=== PATIENT | female | born 1990 | race Caucasian/White ===

== ENCOUNTER 2020-08-25 07:08 | Day surgery (SDC) | payer OTHER ==
[~2020-08-25] VITALS: Ht 167.6 cm; Wt 104.3 kg
[~2020-08-25 07:08] MED LIST: ACETAMINOPHEN 650 MG SUPP PR ONE; CETI5SOL3 PO; LR 1,000 ML IV ONE; PREN200C PO
[2020-08-25 08:28] LABS: HEMATOCRIT 42.7 % (36.0-47.0); MEAN CORPUSCULAR HEMOGLOBIN 29.6 pg (27.0-33.0); MEAN CORPUSCULAR HGB CONC 32.8 g/dl (32.0-36.5); MEAN CORPUSCULAR VOLUME 90.3 fl (80.0-96.0); PLATELET COUNT, AUTOMATED 298 10^3/uL (150-450); RED BLOOD COUNT 4.73 10^6/uL (4.00-5.40); WHITE BLOOD COUNT 6.6 10^3/uL (4.0-10.0)
[2020-08-25 08:51] LABS: BLOOD UREA NITROGEN 15 MG/DL (7-18); CARBON DIOXIDE LEVEL 28 MEQ/L (21-32); CHLORIDE LEVEL 108 MEQ/L (98-107); GLOMERULAR FILTRATION RATE > 60.0 (>60); GLUCOSE, FASTING 86 MG/DL (70-100); HCG, SERUM QUANTITATIVE < 1.0 MIU/ML; POTASSIUM SERUM 4.4 MEQ/L (3.5-5.1); SODIUM LEVEL 142 MEQ/L (136-145)
[2020-08-25] MEDS ORDERED: METOCLOPRAMIDE INJ 10MG/2ML VIAL (J2765 PER 1) As Ordered ONE (09:12)
[2020-08-25] MEDS ORDERED: propofoL 200 MG/20 ML VIAL As Ordered ONE (09:12)
[2020-08-25] MEDS ORDERED: LIDOCAINE 2% 100MG/5ML SDV (FOR ANES.) As Ordered ONE (09:12)
[2020-08-25] MEDS ORDERED: fentaNYL 100 MCG/2 ML INJECTION (J3010) As Ordered ONE (09:12)
[2020-08-25] MEDS ORDERED: ONDANSETRON 4MG/2ML VIAL As Ordered ONE (09:12)
[2020-08-25] MEDS ORDERED: MIDAZOLAM INJ 2MG/2ML VIAL (J2250 PER 1MG) As Ordered ONE (09:13)
[2020-08-25] MEDS ORDERED: SILVER NITRATE APPLICATOR As Ordered ONE (10:45)
[2020-08-25] MEDS ORDERED: ACETAMINOPHEN 650 MG SUPP As Ordered ONE (10:57)
[2020-08-25] MEDS ORDERED: KETOROLAC 60MG 2ML VIAL As Ordered ONE (11:22)
[2020-08-25] MEDS ORDERED: oxyCODONE 5MG TAB As Ordered ONE (12:19)
[2020-08-25] MEDS ORDERED: oxyCODONE 5MG TAB PO PRN (12:30)
[2020-08-25] MEDS ORDERED: ONDANSETRON 4MG/2ML VIAL IV PRN (12:30)
[2020-08-25] MEDS ORDERED: LR 1,000 ML IV SCH (12:30)
[2020-08-25] MEDS ORDERED: fentaNYL 100 MCG/2 ML INJECTION (J3010) IV PRN (12:30)
[2020-08-25 12:58] VITALS: BP 126/78
== END 2020-08-25 13:29 | disposition home or self-care (01) ==
LOC: M SDC 07:08
PROVIDERS: ATTEND Obstetrics & Gynecology
DX: N84.0 Polyp of corpus uteri (principal); N97.9 Female infertility, unspecified; Z88.1 Allergy status to other antibiotic agents; Z79.899 Other long term (current) drug therapy
CPT/HCPCS: 36415; 58558; 80048; 84702; 85027; 88305; J1885; J2250; J2405; J2765; J3010

== ENCOUNTER 2021-04-21 14:46 | Inpatient (IN) | payer OTHER ==
[2021-04-21] VITALS (15 sets, daily range): BP systolic 111–168; BP diastolic 57–104
[~2021-04-21] VITALS: Ht 165.1 cm; Wt 127.4 kg
[~2021-04-21 14:46] MED LIST changes: -ACETAMINOPHEN 650 MG SUPP PR ONE; -LR 1,000 ML IV ONE
[2021-04-21] MEDS ORDERED: CALCIUM GLUCONATE 1,000 MG in D5W MINI-BAG PLUS 100 ML IV PRN (15:25)
[2021-04-21] MEDS ORDERED: MAG Sulf (L&D) 4 GM/100 ML 4 GM in IV 1 EA IV ONE (15:45)
[2021-04-21] MEDS: LR 1,000 ML IV SCH (16:00)
[2021-04-21 16:01] LABS: APPEARANCE, URINE CLOUDY (CLEAR); BACTERIA, URINE AUTO NEGATIVE (NEGATIVE); BILIRUBIN, URINE AUTO NEGATIVE (NEGATIVE); BLOOD, URINE BLOOD NEGATIVE (NEGATIVE); COLOR, URINE YELLOW (YELLOW); GLUCOSE, URINE (UA) AUTO NEGATIVE (NEGATIVE); KETONE, URINE AUTO NEGATIVE (NEGATIVE); LEUKOCYTE ESTERASE, URINE AUTO NEGATIVE (NEGATIVE); NITRITE, URINE AUTO NEGATIVE (NEGATIVE); PROTEIN, URINE AUTO 3+ mg/dL (NEGATIVE); RBC, URINE AUTO 0 /HPF (0-3); SPECIFIC GRAVITY URINE AUTO 1.026 (1.002-1.035); SQUAMOUS EPITHELIAL CELL UR AU 7 /HPF (0-6); UROBILINOGEN, URINE AUTO 0.2 mg/dL (0.0-2.0); WBC, URINE AUTO 9 /HPF (0-3)
[2021-04-21] MEDS: BETAMETHASONE SOLUSPAN 6MG/ML 5ML VIAL (J0702 PER 3MG) IM SCH (16:07)
[2021-04-21] MEDS: MAG Sulf (OBGYN) 20GM/500ML 20,000 MG in IV 1 EA IV SCH (16:16)
[2021-04-21 16:31] LABS: ALT/SGPT 31 U/L (12-78); BILIRUBIN,TOTAL 0.1 MG/DL (0.2-1.0); GLOMERULAR FILTRATION RATE > 60.0 (>60); LDH LACTATE DEHYDROGENASE 273 U/L (84-246); URIC ACID 5.9 MG/DL (2.6-6.0)
[2021-04-21] MEDS ORDERED: NIFEdipine 10 MG CAP PO ONE (17:15)
[2021-04-21] MEDS ORDERED: GNP250TA9 PO (17:40)
[2021-04-21] MEDS ORDERED: PRENTAB9 PO (17:40)
[2021-04-21 17:59] LABS: BASO % 0.2 % (0.0-1.0); EOS # 0.2 10^3/uL (0.0-0.5); EOS % 1.9 % (0.0-3.0); HEMATOCRIT 39.7 % (36.0-47.0); HEMOGLOBIN 13.2 g/dl (12.0-15.5); LYMPH # 1.5 10^3/uL (1.5-5.0); LYMPH % 14.1 % (24.0-44.0); MEAN CORPUSCULAR HEMOGLOBIN 30.1 pg (27.0-33.0); MEAN CORPUSCULAR HGB CONC 33.2 g/dl (32.0-36.5); MEAN CORPUSCULAR VOLUME 90.6 fl (80.0-96.0); MONO # 1.1 10^3/uL (0.0-0.8); MONO % 10.1 % (2.0-8.0); NEUTROPHILS # 7.8 10^3/uL (1.5-8.5); NEUTROPHILS % 73.3 % (36.0-66.0); PLATELET COUNT, AUTOMATED 282 10^3/uL (150-450); RED BLOOD COUNT 4.38 10^6/uL (4.00-5.40); WHITE BLOOD COUNT 10.7 10^3/uL (4.0-10.0)
--- NOTE | 2021-04-21 18:33 | HPEPDOC ---
Obstetrical History & Physical General Date of Admission History of Present Illness 30 yo G1 @ 31W4D by IVF who is admitted for pre e with severe features. patient reports that she had sudden onset of swelling in the last week with 10lb weight gain. she also notes that she has had vision changes, and took her BP, Which was 170's/116's. Patient had a medic repeat her BP and was 170/100's. she then presented to l&d for further testing. in triage BP were 160's/90's persistently and she received 20mg of PROCARDIA PO because she did not have IV access yet. since then her BP has been wnl. pre e labs were also obtained. patient denies any vaginal bleeding or LOF. She reports regular movements. she has no other concerns. Information Provided By: Patient Care Care: Good Care Dating Final EDC: Jun 19, 2021 Estimated Date of Confinement: Jun 19, 2021 EGA at Admission: 31 (31w4d) Antepartum Course Diagnos(e)s 1. Obesity, prepregnancy BMI 38WK, Excessive weight gain in #36LB 2. CHTN-on baby ASA, Baseline Labs were 3. IVF - did not get a echo at 20 weeks 4. Pre e w/SF on Admission s/p 20mg of procardia, elevated creatinine 1.1 and P/C: 16 Height (inches): 65 Pre- weight (lbs.): 225 Admission Weight (lbs.): 261 Change in Weight (lbs.): 34 Past Medical History Past Obstetrical History : Past Obstetrical History: Primgravida ERADICATOR History: No pertinent history Past Medical History Medical History Obesity, CHTN, Migraines Surgical History: Denies/None, Other (wte, polypectomy) Family History Significant Family History: No pertinent family hx Social History Marital Status: Psychosocial History: No pertinent psych hx * Smoker: non-smoker Alcohol: Denies Drugs: denies Abuse Violence Screening Have you been hit/kicked/slapp: No Have you been sexually assault: No Imunizations Tdap status: current Allergies Coded Allergies: erythromycin base (Verified Allergy, Intermediate, PT STATES EYES SWOLLEN SHUT WITH MYOCIN DRUGS, 08/18/20) Medications Scheduled Magnesium Oxide (Magnesium) 250 Mg Tablet, 1 TAB PO DAILY No.137/Iron/Folic Acd ( Vitamin Tablet) 1 Each Tablet, 1 TAB PO DAILY Physical Examination Physical Examination GENERAL: Alert and oriented times three. BREAST: . ABDOMEN: Gravid and non-tender to touch. FETUS: US PENDING HEART RATE: Regular rate and rhythm. LUNGS: Clear to auscultation (CTA). EXTREMITIES: No edema. No clonus. Deep tendon reflexes (DTRs) + 1 Vital Signs/I&O Vital Signs Date Time Temp Pulse Resp B/P (MAP) Pulse Ox O2 Delivery O2 Flow Rate FiO2 04/21/21 16:46 114 18 111/57 (75) 04/21/21 15:08 98.2 Laboratory Data 24H LABS Laboratory Tests 2 04/21/21 15:43: Urine Color YELLOW, Urine Appearance CLOUDYH, Urine pH 5.0, Urine Specific Counselor 1.026, Urine Protein 3+H, Urine Glucose (Auto)(UA) NEGATIVE, Urine Ketones (Auto) NEGATIVE, Urine Blood NEGATIVE, Urine Nitrite NEGATIVE, Urine Bilirubin NEGATIVE, Urine Urobilinogen 0.2, Urine Leukocyte Esterase (Auto) NEGATIVE, Urine WBC (Auto) 9H, Urine RBC (Auto) 0, Urine Hyaline Casts (Auto) 0, Urine Bacteria (Auto) NEGATIVE, Urine Squamous Epithelial Cells 7, Urine Sperm (Auto) , Urine Random Creatinine 170.0, Urine Random Total Protein 2800.0H, Glomerular Filtration Rate > 60.0, Uric Acid 5.9, Total Bilirubin 0.1L, Aspartate Amino Transf (AST/SGOT) 33, Alanine Aminotransferase (ALT/SGPT) 31, Lactate Dehydrogenase 273H, Syphilis Serology NONREACTIVE 04/21/21 16:32: Coronavirus (COVID-19)(PCR) NEGATIVE CBC/BMP Laboratory Tests 04/21/21 15:43 Pertinent Laboratoy Data Blood Type: A+ RBC Antibody Screen: Negative HIV: Negative Hepatitis B: Negative Hepatitis C: Unknown Rapid Plasma Reagin: Nonreactive Rubella: Immune Varicella: Immune Chlamydia/Gonorrhea: Negative Group B Streptococcus: Unknown Cystic Fibrosis: Declined Anatomy Ultrasound Placenta Location: Posterior Assessment Heart Rate (FHR): 150 Variability: Moderate Accelerations: Positive Decelerations: None Tocometer Contractions: No Multi-drug resistant Organism: No history of MDRO Assessment/Plan Assessment 30 yo G1 @ 31W4D by IVF who is admitted for pre e with severe features. patient reports that she had sudden onset of swelling in the last week with 10lb weight gain. she also notes that she has had vision changes, and took her BP, Which was 170's/116's. Patient had a medic repeat her BP and was 170/100's. she then presented to l&d for further testing. in triage BP were 160's/90's persistently and she received 20mg of PROCARDIA PO because she did not have IV access yet. since then her BP has been wnl. pre e labs were also obtained and well notable for elevated creatinine and P/C ratio. now on mag for seizure prevention. 1. Obesity, prepregnancy BMI 38WK, Excessive weight gain in #36LB 2. CHTN-on baby ASA, Baseline Labs were 3. IVF - did not get a echo at 20 weeks 4. Pre e w/SF on Admission s/p 20mg of procardia, elevated creatinine 1.1 and P/C: 16 GBS unknown RH pos Posterior placenta Plan Admit and orient. Cardiac Cath Technician and consent. Diet: clears Group B Streptococcus (GBS) Unknown- if sign of labor, will start Penicillin Pre e labs obtained, will repeat q6hrs for follow creatinine Strict monitoring of UOP -Steroid started at 1607 on 21apr2021 -we discussed best case scenario is delivery at 34 weeks, if she develops HELP syndrome -IV anti-hypertensives PRN -Will decrease mag to 1mg/hr due to elevated creatinine -if concern for delivery before 32 weeks will transfer to [facility] -Order growth scan -get EKG for SOB when she lays down JOSE BLANTON MD Apr 21, 2021 18:33
[2021-04-21] MEDS ORDERED: HOME MED LIST COMPLETE! XX SCH (18:45)
[2021-04-21] MEDS: ONDANSETRON 4MG/2ML VIAL IV PRN (20:14)
[2021-04-21] MEDS: ACETAMINOPHEN 500 MG TAB PO PRN (20:23)
--- NOTE | 2021-04-21 21:14 | REPVR ---
PROCEDURE INFORMATION: Exam: US First Trimester, Transabdominal Exam date and time: 04/21/2021 7:57 PM Age: 30 years old Clinical indication: Screening exam; Other: HX of preeclampsia; ; Additional info: 30 yo g1 @ 31w4d with pre e with S/P needed a growth scan. TECHNIQUE: Imaging protocol: Real-time transabdominal obstetrical ultrasound of the maternal pelvis and a first trimester , less than 14 weeks 0 days, with image documentation. COMPARISON: No relevant prior studies available. FINDINGS: Gestation: Single intrauterine fetus. presentation: Cephalic presentation. Embryonic/ heart rate: heartbeat of 132 bpm. Extra-embryonic membranes/Placenta: Posterior placenta. Amniotic fluid: Amniotic fluid/chorionic fluid is within normal limits for gestational age. Amniotic fluid index: Normal YENNIFER of 9.2 cm. anatomy: The urinary bladder, kidneys and cord are normal. BIOMETRY: Gestational age (AUA): The composite gestational age by ultrasound is 30 weeks 2 days. Estimated due date (AUA): The EDC is 06/28/2021. Estimated weight: The estimated weight is 1517 grams and is 6th percentile. Biparietal diameter: The BPD measures 7.6 cm suggesting an age of 30 weeks 2 days. Head circumference: The head circumference measures 27.4 cm suggesting an age of 30 weeks 0 days. Abdominal circumference: The abdominal circumference measures 25.8 cm suggesting an age of 30 weeks 0 days. Femur length: The femur length measures 5.8 cm suggesting an age of 30 weeks 3 days. MATERNAL: Uterus: Unremarkable. Cervix: Unremarkable. Right adnexa: Unremarkable. Left adnexa: Unremarkable. Intraperitoneal space: No intraperitoneal free fluid. IMPRESSION: 1. Single live intrauterine fetus in cephalic presentation with a composite age of 30 weeks 2 days. The EDC is 06/28/2021. 2. Estimated weight is 1517 g and is 6th percentile. Electronically signed by: Maurice Goode On 04/21/2021 21:13:39 PM
[2021-04-21] MEDS ORDERED: CALCIUM CARBONATE 500 MG CHEW U/D PO ONE (21:50)
[2021-04-21] MEDS ORDERED: ONDANSETRON 4MG/2ML VIAL IV ONE (22:25)
[2021-04-21] MEDS ORDERED: FIORICET TAB PO ONE (22:25)
[2021-04-21 23:24] LABS: HEMATOCRIT 40.9 % (36.0-47.0); HEMOGLOBIN 13.9 g/dl (12.0-15.5); MEAN CORPUSCULAR HEMOGLOBIN 30.2 pg (27.0-33.0); MEAN CORPUSCULAR VOLUME 88.9 fl (80.0-96.0); PLATELET COUNT, AUTOMATED 295 10^3/uL (150-450); WHITE BLOOD COUNT 13.3 10^3/uL (4.0-10.0)
[2021-04-21 23:52] LABS: ALT/SGPT 37 U/L (12-78); BILIRUBIN,TOTAL 0.2 MG/DL (0.2-1.0); BLOOD UREA NITROGEN 17 MG/DL (7-18); CALCIUM LEVEL 8.4 MG/DL (8.5-10.1); CARBON DIOXIDE LEVEL 21 MEQ/L (21-32); CHLORIDE LEVEL 107 MEQ/L (98-107); CREATININE FOR GFR 0.97 MG/DL (0.55-1.30); GLOMERULAR FILTRATION RATE > 60.0 (>60); GLUCOSE, FASTING 108 MG/DL (70-100); POTASSIUM SERUM 5.1 MEQ/L (3.5-5.1); SODIUM LEVEL 136 MEQ/L (136-145); TOTAL PROTEIN 5.7 GM/DL (6.4-8.2)
[2021-04-22] VITALS (44 sets, daily range): BP systolic 134–172; BP diastolic 70–104
[2021-04-22] MEDS ORDERED: CALCIUM CARBONATE 500 MG CHEW U/D PO ONE (00:45)
[2021-04-22] MEDS: LR 1,000 ML IV SCH ×3 (00:53→13:28)
[2021-04-22] MEDS ORDERED: LABETALOL 100MG/20ML VIAL IV STA ×2 (03:04→04:32)
[2021-04-22] MEDS ORDERED: LABETALOL 100MG/20ML VIAL As Ordered ONE ×2 (03:05→19:32)
[2021-04-22 04:02] LABS: HEMATOCRIT 40.4 % (36.0-47.0); HEMOGLOBIN 13.8 g/dl (12.0-15.5); MEAN CORPUSCULAR HEMOGLOBIN 30.3 pg (27.0-33.0); MEAN CORPUSCULAR HGB CONC 34.2 g/dl (32.0-36.5); MEAN CORPUSCULAR VOLUME 88.6 fl (80.0-96.0); PLATELET COUNT, AUTOMATED 315 10^3/uL (150-450); RED BLOOD COUNT 4.56 10^6/uL (4.00-5.40); WHITE BLOOD COUNT 13.7 10^3/uL (4.0-10.0)
[2021-04-22 04:27] LABS: ALBUMIN 1.9 GM/DL (3.2-5.2); ALT/SGPT 38 U/L (12-78); BILIRUBIN,TOTAL 0.2 MG/DL (0.2-1.0); BLOOD UREA NITROGEN 18 MG/DL (7-18); CALCIUM LEVEL 8.4 MG/DL (8.5-10.1); CARBON DIOXIDE LEVEL 20 MEQ/L (21-32); CHLORIDE LEVEL 107 MEQ/L (98-107); CREATININE FOR GFR 1.02 MG/DL (0.55-1.30); GLOMERULAR FILTRATION RATE > 60.0 (>60); GLUCOSE, FASTING 130 MG/DL (70-100); POTASSIUM SERUM 5.1 MEQ/L (3.5-5.1); SODIUM LEVEL 136 MEQ/L (136-145); TOTAL PROTEIN 5.5 GM/DL (6.4-8.2)
[2021-04-22] MEDS: ONDANSETRON 4MG/2ML VIAL IV PRN ×3 (04:49→17:04)
[2021-04-22] MEDS: CALCIUM CARBONATE 500 MG CHEW U/D PO PRN ×4 (05:14→20:07)
--- NOTE | 2021-04-22 07:18 | IPNPDOC ---
Obstetrical Progress Note Date of Service Apr 22, 2021 Subjective 30 yo G1 @ 31W5D by IVF who is admitted for pree with severe features with Severe range BP, Elevated creating of 1.1, vision changes. she has needed 20mg of procardia PO, 20, THEN 40mg of labetalol overnight for BP control. she was started on steroids on admission. her baby has stayed appropriate for gestational age. a GS was obtained yesterday as well with EFW in the 6th percentile. 1. Obesity, prepregnancy BMI 38WK, Excessive weight gain in #36LB 2. CHTN-on baby ASA, Baseline Labs were 3. IVF - did not get a echo at 20 weeks 4. Pre e w/SF on Admission s/p 20mg of procardia, elevated creatinine 1.1 and P/C: 16 5. IUGR- EFW 6th On admission OBJETIVE FHH: 140, MOD SHASHANK, Accels, 10x10, no decels- appropriate for gestational age GENERAL: Alert and oriented times three. BREAST: . ABDOMEN: Gravid and non-tender to touch. FETUS: cephalic HEART RATE: Regular rate and rhythm. LUNGS: Clear to auscultation (CTA). EXTREMITIES: No edema. No clonus. Deep tendon reflexes (DTRs) + 1 PROCEDURE INFORMATION: Exam: US First Trimester, Transabdominal Exam date and time: 04/21/2021 7:57 PM Age: 30 years old Clinical indication: Screening exam; Other: HX of preeclampsia; ; Additional info: 30 yo g1 @ 31w4d with pre e with S/P needed a growth scan. TECHNIQUE: Imaging protocol: Real-time transabdominal obstetrical ultrasound of the maternal pelvis and a first trimester , less than 14 weeks 0 days, with image documentation. COMPARISON: No relevant prior studies available. FINDINGS: Gestation: Single intrauterine fetus. presentation: Cephalic presentation. Embryonic/ heart rate: heartbeat of 132 bpm. Extra-embryonic membranes/Placenta: Posterior placenta. Amniotic fluid: Amniotic fluid/chorionic fluid is within normal limits for gestational age. Amniotic fluid index: Normal YENNIFER of 9.2 cm. anatomy: The urinary bladder, kidneys and cord are normal. BIOMETRY: Gestational age (AUA): The composite gestational age by ultrasound is 30 weeks 2 days. Estimated due date (AUA): The EDC is 06/28/2021. A/P 30 yo G1 @ 31W5D by IVF who is admitted for pree with severe features with Severe range BP, Elevated creating of 1.1, vision changes. she has needed 20mg of procardia PO, 20, THEN 40mg of labetalol overnight for BP control. she was started on steroids on admission. her baby has stayed appropriate for gestational age. a GS was obtained yesterday as well with EFW in the 6th percentile. -now on 1g of mag /hr, due off at 1600. -second dose of steroid today at 1600 -obtain GBS -Start on 200mg BID of labetalol -monitor UOP, Last was 30ml/hr, increase fluid rate to 150/hr, bolus PRN if lungs continues to be clear -IV antihypertensive prn -UA doppler weekly until delivery Objective Vital Signs Date Time Temp Pulse Resp B/P (MAP) Pulse Ox O2 Delivery O2 Flow Rate FiO2 04/22/21 06:08 97.8 93 17 148/94 (112) Assessment Heart Rate (FHR): 140 Variability: Moderate Accelerations: Positive Decelerations: None Heart Rate Tracing: Other (appropriate for gestional age) Tocometer Contractions: No Assessment and Plan Group B Streptococcus: Unknown JOSE BLANTON MD Apr 22, 2021 07:11
[2021-04-22] MEDS: OMEPRAZOLE 20 MG CAP PO SCH ×2 (07:26→22:34)
[2021-04-22] MEDS: LABETALOL 200 MG TAB PO SCH ×2 (07:27→20:04)
[2021-04-22] MEDS: MAG Sulf (OBGYN) 20GM/500ML 20,000 MG in IV 1 EA IV SCH ×2 (07:55→19:50)
[2021-04-22] MEDS ORDERED: CETIRIZINE (ZyrTEC) 10 MG TAB PO SCH (09:00)
--- NOTE | 2021-04-22 09:30 | REP ---
INDICATION: BPP COMPARISON: None. TECHNIQUE: Transabdominal obstetrical ultrasound with color Doppler evaluation. FINDINGS: Examination demonstrates a single live intrauterine in cephalic presentation. motion is identified by technologist. Placenta is noted posterior and grade 2 without evidence for placenta previa or abruption. Amniotic fluid volume is normal. Cervix measures 3.8 cm in length and appears closed.. Selected gestational age: 31 weeks 6 days with ADE 06/18/2021. FHR equals 132 beats per minute. YENNIFER: 12.7 cm Umbilical artery SD ratio: 2.56 Biophysical profile score: 8/8 IMPRESSION: Single live intrauterine in cephalic presentation. Amniotic fluid volume and biophysical profile score normal. <Electronically signed by Thang Blancas > 04/22/21 1402
[2021-04-22 10:15] LABS: HEMATOCRIT 40.7 % (36.0-47.0); HEMOGLOBIN 13.6 g/dl (12.0-15.5); MEAN CORPUSCULAR HEMOGLOBIN 29.7 pg (27.0-33.0); MEAN CORPUSCULAR HGB CONC 33.4 g/dl (32.0-36.5); MEAN CORPUSCULAR VOLUME 88.9 fl (80.0-96.0); PLATELET COUNT, AUTOMATED 349 10^3/uL (150-450); RED BLOOD COUNT 4.58 10^6/uL (4.00-5.40); WHITE BLOOD COUNT 15.3 10^3/uL (4.0-10.0)
[2021-04-22 10:46] LABS: ALBUMIN 2.1 GM/DL (3.2-5.2); BILIRUBIN,TOTAL 0.2 MG/DL (0.2-1.0); CALCIUM LEVEL 9.2 MG/DL (8.5-10.1); CREATININE FOR GFR 1.15 MG/DL (0.55-1.30); GLOMERULAR FILTRATION RATE 59.4 (>60); POTASSIUM SERUM 5.3 MEQ/L (3.5-5.1); TOTAL PROTEIN 5.9 GM/DL (6.4-8.2)
[2021-04-22] MEDS ORDERED: LR 250 ML IV ONE (11:00)
--- NOTE | 2021-04-22 13:34 | IPNPDOC ---
Obstetrical Progress Note Date of Service Apr 22, 2021 Subjective Pt reports that she is no longer having vision changes or shortness of breath. Does report increased swelling since admission up to thighs and elbows. Objective Vital Signs Date Time Temp Pulse Resp B/P (MAP) Pulse Ox O2 Delivery O2 Flow Rate FiO2 04/22/21 11:09 98.4 04/22/21 10:59 93 18 141/104 (116) Assessment Heart Rate (FHR): 125 Variability: Moderate Accelerations: Positive Decelerations: None Heart Rate Tracing: Category I Tocometer Contractions: No Assessment and Plan Additional Comments A/P 30yo at 31+5 wks gestation admitted for pre-eclampsia with severe features A positive/RI/ GBS unknown, swab collected this am. Mild range BP, was started on Labetalol 200mg BID this am. Over night, she received 20mg and 40mg IV labetalol. Q6hr CMP, most recently elevated Creatinine and slightly elevated AST, but stable. Normal CBC. Admit P:C 16 (baseline was 0.2 a month ago). Urine output 20ml/hr for 2 hours prior to noon. 250ml LR bolus with increase to 50ml/hr and 40ml/hr for subsequent hours. Patient with GERD and nausea, improved with omprazole this am, did have emesis earlier today as well. Physical exam significant for 2+ pitting edema up to bilateral knees with further swelling to bilateral thighs. Mod non-pitting edema up to bilateral elbows. Lungs clear to auscultation bilaterally. +2 patellar reflexes, no clonus. FHR Cat 1 tracing, reassuring Due for 2nd dose of betamethasone at 1600 today. 24hr Mag sulfate will conclude at 1600 today for seizure prophylaxis. Consulted with Dr. Romero. Pt currently laboratory stable, however potential for decompensation. As patient 31+5 and not yet at capability of [facility] NICU, possibility to consider transfer to [facility] for higher level NICU care in event of delivery prior to 32wks. ADAIR NAGEL CNM Apr 22, 2021 11:16
[2021-04-22] MEDS: ACETAMINOPHEN 500 MG TAB PO PRN (15:10)
[2021-04-22] MEDS ORDERED: LABETALOL 200 MG TAB PO ONE (16:00)
[2021-04-22] MEDS: BETAMETHASONE SOLUSPAN 6MG/ML 5ML VIAL (J0702 PER 3MG) IM SCH (16:00)
[2021-04-22 16:06] LABS: HEMATOCRIT 40.9 % (36.0-47.0); HEMOGLOBIN 13.7 g/dl (12.0-15.5); MEAN CORPUSCULAR HEMOGLOBIN 29.8 pg (27.0-33.0); MEAN CORPUSCULAR HGB CONC 33.5 g/dl (32.0-36.5); MEAN CORPUSCULAR VOLUME 88.9 fl (80.0-96.0); PLATELET COUNT, AUTOMATED 376 10^3/uL (150-450); WHITE BLOOD COUNT 15.2 10^3/uL (4.0-10.0)
[2021-04-22 16:39] LABS: BILIRUBIN,TOTAL 0.2 MG/DL (0.2-1.0); CALCIUM LEVEL 8.6 MG/DL (8.5-10.1); CREATININE FOR GFR 1.22 MG/DL (0.55-1.30); GLOMERULAR FILTRATION RATE 55.5 (>60); POTASSIUM SERUM 5.1 MEQ/L (3.5-5.1); TOTAL PROTEIN 5.5 GM/DL (6.4-8.2)
--- NOTE | 2021-04-22 18:48 | IPNPDOC ---
Text Note Date of Service The patient was seen on 04/22/21. NOTE Lenora Jarvis is a 30yo now at 31+5 admitted one day ago at 31+4 for superimposed preeclampsia with severe features on chronic hypertension. Her is complicated by obesity and IVF . She presented to L&D with headaches, visual changes, 10# weight gain in a week and bilateral leg swelling. Her blood pressure on admission was systolic 170s so she was given procardia then started on 200mg PO labetalol BID. Since then her blood pressures had been mild range with occasional 160s systolic however she has not required additional IV medications. She was started on magnesium sulfate on OCT at 1600; this was reduced to 1g/hr due to rising creatinine. She received two doses of betamethazone with the first dose on [id number] at 1600. Labs notable for rising Cr, 1.1 then 1.2 Protein Creatinine ratio of 16. A growth scan revealed 1517g, 6th percentile with 8/8 BPP and normal dopplers. She states she is allergic to all "mycins". MedHx: seasonal allergies, migraines SurgHx: polypectomy Due to concern for possible delivery prior to 32 weeks if her condition worsens suddenly she was setup for transfer to [place] and they accepted. VS,Sandrobone, I+O VS, Fishbone, I+O Laboratory Tests 04/21/21 22:20 04/22/21 03:53 04/22/21 09:56 04/22/21 15:54 Vital Signs Date Time Temp Pulse Resp B/P (MAP) Pulse Ox O2 Delivery O2 Flow Rate FiO2 04/22/21 18:12 98.8 04/22/21 17:49 97 18 154/91 (112) I&O- Last 24 Hours up to 6 AM 04/22/21 06:00 Intake Total 2248 ml Output Total 1645 ml Balance 603 ml AG MERCADO DO Apr 22, 2021 18:48
[2021-04-22] MEDS ORDERED: cefoTEtan DISODIUM 2 GM in D5W MINI-BAG PLUS 50 ML IV ONE (19:10)
[2021-04-22] MEDS ORDERED: LABETALOL 100MG/20ML VIAL IV SCH (19:45)
[2021-04-22] MEDS ORDERED: LR 1,000 ML IV SCH (19:45)
[2021-04-23 00:04] VITALS: BP 133/80
[2021-04-23] MEDS ORDERED: ACETAMINOPHEN 325 MG TAB PO ONE (00:05)
[2021-04-23] MEDS: ACETAMINOPHEN 500 MG TAB PO PRN (00:12)
[2021-04-23] MEDS: MAG Sulf (OBGYN) 20GM/500ML 20,000 MG in IV 1 EA IV SCH (00:13)
[2021-04-23 00:23] LABS: HEMATOCRIT 38.3 % (36.0-47.0); MEAN CORPUSCULAR HEMOGLOBIN 30.1 pg (27.0-33.0); MEAN CORPUSCULAR HGB CONC 33.9 g/dl (32.0-36.5); MEAN CORPUSCULAR VOLUME 88.7 fl (80.0-96.0); PLATELET COUNT, AUTOMATED 333 10^3/uL (150-450); RED BLOOD COUNT 4.32 10^6/uL (4.00-5.40); WHITE BLOOD COUNT 13.6 10^3/uL (4.0-10.0)
[2021-04-23 00:30] VITALS: BP 138/80
[2021-04-23 00:36] LABS: ALBUMIN 1.8 GM/DL (3.2-5.2); BILIRUBIN,TOTAL 0.2 MG/DL (0.2-1.0); CALCIUM LEVEL 8.6 MG/DL (8.5-10.1); CREATININE FOR GFR 1.27 MG/DL (0.55-1.30); POTASSIUM SERUM 5.1 MEQ/L (3.5-5.1); TOTAL PROTEIN 5.1 GM/DL (6.4-8.2)
== END 2021-04-23 02:15 | disposition short-term general hospital (02) | DRG 833 ==
LOC: M LDO 14:46 → M LDI 18:28
PROVIDERS: ADMIT Obstetrics & Gynecology; ATTEND Obstetrics & Gynecology
DX: O11.3 Pre-existing hypertension with pre-eclampsia, third trimester (principal); Z3A.31 31 weeks gestation of pregnancy; O09.813 Supervision of pregnancy resulting from assisted reproductive technology, third trimester; O99.213 Obesity complicating pregnancy, third trimester; E66.9 Obesity, unspecified; O99.353 Diseases of the nervous system complicating pregnancy, third trimester; G43.909 Migraine, unspecified, not intractable, without status migrainosus; Z88.1 Allergy status to other antibiotic agents; Z79.899 Other long term (current) drug therapy; Z20.822 Contact with and (suspected) exposure to COVID-19; O36.5930 Maternal care for other known or suspected poor fetal growth, third trimester, not applicable or unspecified; O99.613 Diseases of the digestive system complicating pregnancy, third trimester; K21.9 Gastro-esophageal reflux disease without esophagitis; O10.013 Pre-existing essential hypertension complicating pregnancy, third trimester